=== PATIENT | male | born 1945 | race Caucasian/White ===

== ENCOUNTER 2018-03-21 06:30 | Outpatient (CLI) | payer OTHER | END 2018-03-21 06:37 | disposition home or self-care (01) | LOC: LAB 06:30 | DX: N30.00 Acute cystitis without hematuria (principal); Z86.010 Personal history of colon polyps ==

== ENCOUNTER → 2018-03-21 | Outpatient (CLI) | payer OTHER ==
[~2018-03-21] MED LIST: FIORICET 50-301 EACH PO; FIORICET 50-321 EACH PO
== END | disposition home or self-care (01) ==
LOC: SONOGRAMA 07:51
DX: N40.1 Benign prostatic hyperplasia with lower urinary tract symptoms (principal)

== ENCOUNTER 2018-09-03 08:59 | Emergency (ER) | payer OTHER ==
[~2018-09-03] VITALS: Ht 162.6 cm; Wt 69.4 kg
== END 2018-09-03 14:13 | disposition home or self-care (01) ==
LOC: ER 08:59
DX: E11.649 Type 2 diabetes mellitus with hypoglycemia without coma (principal)

== ENCOUNTER 2018-11-15 08:57 | Emergency (ER) | payer OTHER ==
[~2018-11-15] VITALS: Ht 160 cm; Wt 71.2 kg
[2018-11-15] MEDS ORDERED: TESSALON PERLE100 M1 PO (11:44)
[2018-11-15] MEDS ORDERED: MUCINEX DM ER1 EAC1 PO (11:44)
== END 2018-11-15 12:51 ==
LOC: ER 08:57
DX: J06.9 Acute upper respiratory infection, unspecified (principal); E11.65 Type 2 diabetes mellitus with hyperglycemia; R05 Cough; J11.1 Influenza due to unidentified influenza virus with other respiratory manifestations

== ENCOUNTER 2019-04-08 07:52 | Emergency (ER) | payer OTHER ==
[~2019-04-08] VITALS: Ht 170.2 cm; Wt 70.8 kg
[~2019-04-08 07:52] MED LIST changes: +MUCINEX DM ER1 EAC1 PO; +TESSALON PERLE100 M1 PO
[2019-04-08] MEDS ORDERED: NEURONTIN600 MG PO (08:06)
[2019-04-08] MEDS ORDERED: AVAPRO150 MG PO (08:06)
[2019-04-08] MEDS ORDERED: ZOCOR20 MG PO (08:06)
[2019-04-08] MEDS ORDERED: GLUCOTROL10 MG PO (08:07)
[2019-04-08] MEDS ORDERED: INSULIN SYRING1 EA26 MC (08:08)
== END 2019-04-08 10:02 | disposition home or self-care (01) ==
LOC: ER 07:52
DX: R51 Headache (principal)

== ENCOUNTER 2019-04-27 09:05 | Emergency (ER) | payer OTHER ==
[~2019-04-27] VITALS: Ht 162.6 cm; Wt 69.9 kg
[~2019-04-27 09:05] MED LIST changes: +AVAPRO150 MG PO; +GLUCOTROL10 MG PO; +INSULIN SYRING1 EA26 MC; +NEURONTIN600 MG PO; +ZOCOR20 MG PO
[2019-04-27] MEDS ORDERED: TENCON 50-3251 EACH (09:19)
[2019-04-27] MEDS ORDERED: ULTRACET PO (10:23)
== END 2019-04-27 10:45 | disposition home or self-care (01) ==
LOC: ER 09:05
DX: G44.209 Tension-type headache, unspecified, not intractable (principal)

== ENCOUNTER 2019-06-24 11:09 | Emergency (ER) | payer OTHER ==
[~2019-06-24] VITALS: Ht 162.6 cm; Wt 69.9 kg
[~2019-06-24 11:09] MED LIST changes: +TENCON 50-3251 EACH; +ULTRACET PO
== END 2019-06-24 14:10 | disposition home or self-care (01) ==
LOC: ER 11:09
DX: S80.11XA Contusion of right lower leg, initial encounter (principal); W22.8XXA Striking against or struck by other objects, initial encounter; Y93.89 Activity, other specified; Y92.89 Other specified places as the place of occurrence of the external cause; Y99.8 Other external cause status

== ENCOUNTER 2019-09-07 08:31 | Emergency (ER) | payer OTHER ==
[~2019-09-07] VITALS: Ht 162.6 cm; Wt 69.9 kg
== END 2019-09-07 10:03 | disposition home or self-care (01) ==
LOC: ER 08:31
DX: H92.03 Otalgia, bilateral (principal); H61.23 Impacted cerumen, bilateral

== ENCOUNTER 2021-12-15 11:23 | Emergency (ER) | payer OTHER ==
[~2021-12-15] VITALS: Ht 162.6 cm; Wt 69.4 kg
== END 2021-12-15 13:15 | disposition home or self-care (01) ==
LOC: ER 11:23
DX: R51.9 Headache, unspecified (principal); E11.9 Type 2 diabetes mellitus without complications; Z79.4 Long term (current) use of insulin; I10 Essential (primary) hypertension; G62.9 Polyneuropathy, unspecified

== ENCOUNTER 2022-10-21 09:25 | Emergency (ER) | payer OTHER ==
[~2022-10-21] VITALS: Ht 162.6 cm; Wt 69.4 kg
== END 2022-10-21 13:36 | disposition home or self-care (01) ==
LOC: ER 09:25
DX: B34.9 Viral infection, unspecified (principal); Z20.822 Contact with and (suspected) exposure to COVID-19

== ENCOUNTER → 2025-03-23 | Emergency (ER) | payer OTHER ==
[~2025-03-23] VITALS: Ht 160 cm; Wt 69.9 kg
[~2025-03-23] MED LIST changes: +NITROGLYCERIN IN 5 % DEXTROSE 250 ML IV SCH; +NITROGLYCERIN IN 5 % DEXTROSE 50 MG/250 ML BOTTLE IV ONE; +TICAGRELOR 90 MG TABLET PO ONE
[2025-03-23 11:09] LABS: BASO % 0.5 % (0.1-1.2); EOS # 0.22 (0.04-0.54); HEMATOCRIT 30.5 % (40.1-51.0); HEMOGLOBIN 10.5 g/dL (13.7-17.5); LYMPH % 17.4 % (19.3-53.1); MEAN CORPUSCULAR HEMOGLOBIN 31.8 pg (25.6-32.2); MONO # 1.22 (0.24-0.82); MONO % 11.2 % (4.7-12.5); NEUT # 7.45 (1.56-6.13); NEUT % 68.2 % (34.0-71.1); PLATELET COUNT 234 K/uL (163-369); RED CELL DISTRIBUTION WIDTH 14.1 % (11.6-14.4)
[2025-03-23 11:31] LABS: INR 0.98; PARTIAL THROMBOPLASTIN TIME 29.8 SECONDS (22.0-34.0); PROTHROMBIN TIME 10.7 SECONDS (9.0-11.5)
[2025-03-23 11:39] LABS: ALBUMIN 3.3 gm/dL (3.4-5.0); BILIRUBIN TOTAL 0.51 mg/dL (0.3-1.2); CALCIUM 8.5 mg/dL (8.5-10.1); CREATININE SERUM 3.38 mg/dL (0.70-1.30); GFR 17.55; GLOBULINA 3.6 G/DL (2.4-3.5); POTASSIUM 5.27 mEq/L (3.5-5.1); TOTAL PROTEIN 6.9 gm/dL (6.4-8.2)
[2025-03-23 12:25] LABS: URINE APPEARANCE Clear; URINE BILIRRUBIN Negative (NEGATIVE); URINE BLOOD Negative; URINE COLOR Yellow; URINE KETONE Negative (NEGATIVE); URINE LEUKOCYTE Negative; URINE NITRATE Negative; URINE UROBILINOGEN 0.2 E.U./dl
[2025-03-23 12:30] LABS: URINE BACTERIA 12.2 uL (0.0-1933); URINE RBC 5.5 uL (0.0-20.8)
[2025-03-23 12:33] LABS: URINE CAST 0.14 uL (0.0-1.40); URINE GLUCOSE 250 MG/DL (NEGATIVE); URINE PROTEIN 300 (NEGATIVE); URINE WBC 1.2 uL (0.0-23.2)
== END | disposition designated cancer center or children's hospital (05) ==
LOC: ER 08:44
PROVIDERS: Emergency Medicine
DX: R07.89 Other chest pain (principal); I10 Essential (primary) hypertension; E11.9 Type 2 diabetes mellitus without complications; Z79.4 Long term (current) use of insulin

== ENCOUNTER 2025-09-09 10:27 | Outpatient (CLI) | payer OTHER ==
[~2025-09-09 10:27] MED LIST changes: -NITROGLYCERIN IN 5 % DEXTROSE 250 ML IV SCH; -NITROGLYCERIN IN 5 % DEXTROSE 50 MG/250 ML BOTTLE IV ONE; -TICAGRELOR 90 MG TABLET PO ONE
== END 2025-09-09 10:29 | disposition home or self-care (01) ==
LOC: TOM 10:27
PROVIDERS: ATTEND Internal Medicine Gastroenterology
DX: K92.1 Melena (principal)